=== PATIENT | male | born 1990 | race Caucasian/White ===

== ENCOUNTER 2017-07-19 05:38 | Day surgery (SDC) | payer OTHER ==
[2017-07-19] VITALS (13 sets, daily range): BP systolic 127–161; BP diastolic 58–77; PULSE 72–108; RESP 12–19; Ht 188 cm; Wt 107.3 kg
[~2017-07-19] VITALS: Ht 188 cm; Wt 107.3 kg
[2017-07-19] MEDS ORDERED: BUPIVACAINE 0.5%/EPI (SDV) 30 ML INJ ONE (07:06)
[2017-07-19] MEDS ORDERED: GELATIN SIZE 100 SPONGE ONE (07:06)
[2017-07-19] MEDS ORDERED: POLYMYXIN/BACITRACIN 1L IRRIG ONE (07:06)
[2017-07-19] MEDS ORDERED: THROMBIN 5000 UNIT VIAL ONE (07:06)
--- NOTE | 2017-07-19 07:06 | HPN ---
Date/Time of Note Date/Time of Note DATE: 07/19/17 TIME: 07:06 Interval H&P Admission Note Pt. seen H&P reviewed: No system changes BRISEIDA SINGLETARY MD Jul 19, 2017 07:06
[2017-07-19] MEDS ORDERED: GLYCOPYRROLATE 0.4 MG INJ ONE ×3 (07:27→08:21)
[2017-07-19] MEDS ORDERED: NEOSTIGMINE 3 MG/3 ML SYRINGE ONE ×2 (07:27→08:21)
[2017-07-19] MEDS ORDERED: SUCCINYLCHOLINE CHLORIDE 100 MG/5 ML SYG IV ONE (07:27)
[2017-07-19] MEDS ORDERED: ROCURONIUM 50 MG INJ ONE ×2 (07:27→08:21)
[2017-07-19] MEDS ORDERED: MEPERIDINE 100 MG INJ ONE (07:27)
[2017-07-19] MEDS ORDERED: LIDOCAINE 2% (SDV) 5 ML INJ ONE (07:27)
[2017-07-19] MEDS ORDERED: PROPOFOL 20 ML ONE (07:27)
[2017-07-19] MEDS ORDERED: hydrALAzine 20 MG INJ ONE (08:09)
[2017-07-19] MEDS ORDERED: CEFAZOLIN 1 GM INJ ONE (08:21)
[2017-07-19] MEDS ORDERED: BETAMET NA PHOS/AC(6 MG/ML) 5ML INJ ONE (09:05)
[2017-07-19] MEDS ORDERED: LABETALOL HCL 20MG INJ IV PRN (10:00)
[2017-07-19] MEDS ORDERED: METOCLOPRAMIDE 10 MG INJ IV PRN (10:00)
[2017-07-19] MEDS ORDERED: MEPERIDINE 25 MG INJ IV PRN (10:00)
[2017-07-19] MEDS ORDERED: DIPHENHYDRAMINE 50 MG INJ IV PRN (10:00)
[2017-07-19] MEDS ORDERED: HYDROmorphONE (0.2 MG/ML) 10ML SYG IV PRN ×3 (10:00)
[2017-07-19] MEDS ORDERED: FENTAnyl 50 MCG/ML VIAL IV PRN ×3 (10:00)
[2017-07-19] MEDS ORDERED: MIDAZOLAM 1 MG/ML 2 ML INJ IV PRN (10:00)
[2017-07-19] MEDS ORDERED: OXYCODONE/ACETAMINOPHEN (5/325) TAB PO PRN ×3 (10:00→10:30)
[2017-07-19] MEDS ORDERED: ONDANSETRON 4 MG INJ IV PRN ×2 (10:00→10:30)
[2017-07-19] MEDS ORDERED: EPHEDrine SULFATE 50 MG/5 ML SYG IV PRN (10:00)
[2017-07-19] MEDS ORDERED: hydrALAzine 20 MG INJ IV PRN (10:00)
--- NOTE | 2017-07-19 10:01 | OPR ---
Date/Time of Note Date/Time of Note DATE: 07/19/17 TIME: 09:57 Operative Report Free Text/Dictation DATE OF OPERATION: 07/19/2017 PREOPERATIVE DIAGNOSES: Left sided L5-S1 disk herniation with S1 radiculopathy POSTOPERATIVE DIAGNOSES: Left sided L5-S1 disk herniation with S1 radiculopathy OPERATION PERFORMED: Left L5-S1 microdiscectomy SURGEON: Briseida Singletary MD SPLICER MACHINE OPERATOR: Cruz Chacko MD ANESTHESIA: General endotracheal ESTIMATED BLOOD LOSS: 15 mL SURGICAL INDICATION: The patient is a 26 year-old male who presents with a history of left lower extremity pain and weakness. He was found to have a disc herniation which correlated well with his symptoms. The patient had failed conservative treatment. Risks, benefits, and alternatives to microdiscectomy were explained to the patient and they wished to proceed. Risks explained included but were not exclusive of bleeding, infection, cauda equina syndrome, nerve injury, dural tear, iatrogenic instability, recurrent disc herniation, fracture, vascular injury, bowel injury, stroke, heart attack and pulmonary embolism. DESCRIPTION OF TECHNIQUE: The patient was identified in the preoperative area and taken to the operating room. Rapid induction of general endotracheal anesthesia was performed. The patient was given 2 g of cefazolin for prophylaxis. The patient was then placed in the prone position on the [place] frame on a [place] flat top table with all prominences well padded. The back was prepped and draped in the usual sterile manner. Using a spinal needle and intraoperative fluoroscopy, the appropriate level was clearly identified (L5-S1) . The skin was injected using 0.5% Marcaine with epinephrine. Longitudinal midline incision was then created using a 10 blade. Further dissection through soft tissue was performed using electrocautery down to the spinous processes. The dissection was taken down the left side of the lamina and over the facet joint capsule. A self-retaining retractor was applied. Again, intraoperative fluoroscopy confirmed the appropriate level. The microscope was brought into use for microdissection. A small portion of the caudal aspect of the cephalad lamina and medial facet was resected using a high-speed bur. A series of Kerrison rongeurs were then used to resect the ligamentum flavum. The left S1 pedicle was identified using a jania. The dura and traversing nerve root were both directly visualized. These were retracted gently in a medial direction. Immediately, the extruded disc fragment was noted. The pseudo anulus was incised using an 11 blade. Several loose fragments of disk were removed. These were removed back to a stable portion of the disk. A nerve hook and a series of pituitaries were used to ensure removal of all loose fragments. Palpation with a ball-tip probe did not reveal any further stenosis. The traversing left S1 nerve root was noted to be significantly decompressed. Meticulous attention was paid towards hemostasis using FloSeal. Care was taken to remove all FloSeal prior to wound closure. The fascia was then closed using 0 Vicryl in an interrupted fashion. Subcutaneous tissue was closed using 2-0 Vicryl in an interrupted fashion. The skin was closed using a running 4-0 Monocryl stitch. The wound was dressed using Dermabond and a 4x4 sterile gauze. The patient was returned to the supine position. He was extubated immediately postoperatively and taken to the recovery room in stable condition. COMPLICATIONS: None. Procedure Date: Jul 19, 2017 Preoperative Diagnosis Left sided L5-S1 disk herniation with S1 radiculopathy Postoperative Diagnosis Left sided L5-S1 disk herniation with S1 radiculopathy Surgeon see signature line Supervisor Instrument Repair Cruz Chacko MD Anesthesia Type: general Estimated Blood Loss: 10 - 50 ml's Transfusion none Specimen L5-S1 disk Grafts/Implants none Complications none Pt Condition Post Procedure: stable Disposition: PACU Procedure Description DESCRIPTION OF TECHNIQUE: The patient was identified in the preoperative area and taken to the operating room. Rapid induction of general endotracheal anesthesia was performed. The patient was given 2 g of cefazolin for prophylaxis. The patient was then placed in the prone position on the [place] frame on a [place] flat top table with all prominences well padded. The back was prepped and draped in the usual sterile manner. Using a spinal needle and intraoperative fluoroscopy, the appropriate level was clearly identified (L5-S1) . The skin was injected using 0.5% Marcaine with epinephrine. Longitudinal midline incision was then created using a 10 blade. Further dissection through soft tissue was performed using electrocautery down to the spinous processes. The dissection was taken down the left side of the lamina and over the facet joint capsule. A self-retaining retractor was applied. Again, intraoperative fluoroscopy confirmed the appropriate level. The microscope was brought into use for microdissection. A small portion of the caudal aspect of the cephalad lamina and medial facet was resected using a high-speed bur. A series of Kerrison rongeurs were then used to resect the ligamentum flavum. The left S1 pedicle was identified using a jania. The dura and traversing nerve root were both directly visualized. These were retracted gently in a medial direction. Immediately, the extruded disc fragment was noted. The pseudo anulus was incised using an 11 blade. Several loose fragments of disk were removed. These were removed back to a stable portion of the disk. A nerve hook and a series of pituitaries were used to ensure removal of all loose fragments. Palpation with a ball-tip probe did not reveal any further stenosis. The traversing left S1 nerve root was noted to be significantly decompressed. Meticulous attention was paid towards hemostasis using FloSeal. Care was taken to remove all FloSeal prior to wound closure. The fascia was then closed using 0 Vicryl in an interrupted fashion. Subcutaneous tissue was closed using 2-0 Vicryl in an interrupted fashion. The skin was closed using a running 4-0 Monocryl stitch. The wound was dressed using Dermabond and a 4x4 sterile gauze. The patient was returned to the supine position. He was extubated immediately postoperatively and taken to the recovery room in stable condition. BRISEIDA SINGLETARY MD Jul 19, 2017 10:01
--- NOTE | 2017-07-19 10:06 | PDOCDIS ---
Discharge Instructions CONDITION Patient Condition: Good HOME CARE INSTRUCTIONS: Diet Instructions: Regular ACTIVITY: Activity Restrictions: Avoid heavy lifting Bathing Restrictions: Shower FOLLOW UP/APPOINTMENTS Follow-up Plan Follow-up with Dr. Singletary in 2 weeks BRISEIDA SINGLETARY MD Jul 19, 2017 10:06
[2017-07-19] MEDS ORDERED: NALOXONE (0.4 MG/ML) INJ IV PRN (10:30)
[2017-07-19] MEDS ORDERED: ACETAMINOPHEN 325 MG TAB PO PRN (10:30)
[2017-07-19] MEDS ORDERED: PROCHLORPERAZINE 10 MG TAB PO PRN (10:30)
[2017-07-19] MEDS ORDERED: NACL 0.9% 3 ML SYG IV SCH (10:30)
[2017-07-19] MEDS ORDERED: METHOCARBAMOL 500 MG TAB PO SCH (13:00)
--- NOTE | 2017-07-19 13:15 | RADRPT ---
PROCEDURE: XR fluoro guidance CLINICAL INDICATION: Lumbar microdiskectomy L5-S1 TECHNIQUE: Fluoroscopy performed. 3 images submitted. Total fluoro time: 5 seconds COMPARISON: None. FINDINGS: Posterior instrumentation at L5-S1. See operative/procedure report for details. IMPRESSION: Fluoroscopic guidance for lumbar spine surgery. RPTAT: VV .Nguyễn Garcia MD, Date Time Electronically viewed and signed by .Nguyễn Garcia MD, on 07/19/2017 13:14 .O/
== END 2017-07-19 14:00 | disposition home or self-care (01) ==
LOC: SDS 05:38
PROVIDERS: ATTEND Orthopaedic Surgery
DX: M51.16 Intervertebral disc disorders with radiculopathy, lumbar region (principal)
CPT/HCPCS: 62380; 72100; 97163; J0360; J0690; J0702; J2175; J2405; J2710; J3010